=== PATIENT | male | born 1950 | race Caucasian/White ===

== ENCOUNTER 2018-07-01 20:30 | Outpatient (CLI) | payer MEDICARE | END 2018-07-01 20:31 | disposition home or self-care (01) | LOC: SLEEPLAB 20:30 | PROVIDERS: ATTEND Family Medicine | DX: G47.33 Obstructive sleep apnea (adult) (pediatric) (principal); I10 Essential (primary) hypertension; E11.9 Type 2 diabetes mellitus without complications; Z68.39 Body mass index [BMI] 39.0-39.9, adult | CPT/HCPCS: 95810 ==

== ENCOUNTER 2018-07-03 20:30 | Outpatient (CLI) | payer MEDICARE | END 2018-07-03 20:31 | disposition home or self-care (01) | LOC: SLEEPLAB 20:30 | PROVIDERS: ATTEND Family Medicine | DX: G47.33 Obstructive sleep apnea (adult) (pediatric) (principal) | CPT/HCPCS: 95811 ==

== ENCOUNTER 2018-09-01 08:04 | Outpatient (CLI) | payer MEDICARE ==
--- NOTE | 2018-09-01 10:06 | ULT ---
BILATERAL RENAL ULTRASOUND WITH GRAYSCALE AND DOPPLER COLOR FLOW IMAGING: Clinical history: Urinary tract infection. 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 The right kidney reveals no evidence of hydronephrosis. Two small cortical cysts are demonstrated whi ch are benign appearing measuring slightly greater than 1 cm. Urinary bladder is empty and completely distended limiting assessment. Ureteral jet is documented with doppler color flow. IMPRESSION: 1. Absence of left kidney. 2. Small right renal cortical cysts. POS: [facility]
== END 2018-09-01 08:05 | disposition home or self-care (01) ==
LOC: SCSULT 08:04
PROVIDERS: ATTEND Urology
DX: Z12.5 Encounter for screening for malignant neoplasm of prostate (principal); N39.0 Urinary tract infection, site not specified; N28.1 Cyst of kidney, acquired; Z90.5 Acquired absence of kidney
CPT/HCPCS: 36415; 76770; 76775; G0103

== ENCOUNTER 2018-11-26 14:54 | Outpatient (CLI) | payer MEDICARE ==
--- NOTE | 2018-11-26 16:47 | CT ---
CT PULMONARY LUNG SCAN WITHOUT CONTRAST: HISTORY: Low dose screening. The patient is a 35-year smoker. FINDINGS: There is a calcified granuloma within the right lower lobe. No other pulmonary nodules are identifie d. No pleural effusions or infiltrative process. The mediastinal structures are unremarkable, other than moderate coronary artery calcification. The visualized liver parenchyma shows no focal findings. IMPRESSION: Lung-RADS category 1S-Negative. The S designation is for moderate coronary artery calcification. POS: [facility]
== END 2018-11-26 14:55 | disposition home or self-care (01) ==
LOC: CT 14:54
PROVIDERS: ATTEND Family Medicine
DX: F17.210 Nicotine dependence, cigarettes, uncomplicated (principal)
CPT/HCPCS: G0297

== ENCOUNTER 2020-12-28 11:14 | Outpatient (CLI) | payer OTHER | END 2020-12-28 11:15 | disposition home or self-care (01) | LOC: BICCT 11:14 | PROVIDERS: ATTEND Family Medicine | DX: E78.2 Mixed hyperlipidemia (principal); I70.90 Unspecified atherosclerosis | CPT/HCPCS: 75571 ==

== ENCOUNTER 2021-07-05 13:00 | Inpatient (IN) | payer MEDICARE ==
[2021-07-11 15:30] LABS: Hemoglobin 15.8 g/dL (13.5-17.5); Mean Corpuscular HGB CONC 34.8 g/dL (32.0-36.0); Mean Corpuscular Hemoglobin 32.1 pg (27.0-33.0); Mean Corpuscular Volume 92.3 fl (81.2-95.1); Mean Platelet Volume 10.8 fl (7.4-10.4); Platelet Count 227 10x3/uL (150-450); RBC Distribution Width 12.6 % (11.5-14.5); Red Blood Cell (RBC) Count 4.92 10x6/uL (4.32-5.72); White Blood Cell (WBC) Count 8.9 10x3/uL (3.5-10.5)
[2021-07-11 15:53] LABS: Anion Gap 16 mmol/L (10-20); BUN (Urea Nitrogen) 11 mg/dL (8.4-25.7); Calc. Creatinine Clearance 0 mL/min (70-130); Calcium 10.8 mg/dL (7.8-10.44); Carbon Dioxide 23 mmol/L (23-31); Chloride 101 mmol/L (98-107); Glucose 219 mg/dL (80-115); Potassium 4.2 mmol/L (3.5-5.1); Sodium 136 mmol/L (136-145)
[2021-07-12 00:49] LABS: SARS-CoV-2 PCR by NAA Not Detected (NotDetected)
[2021-07-13 11:43] VITALS: BMI 38.0
[2021-07-14] MEDS ORDERED: Fentanyl 250 MCG/5 ML VIAL ONE (07:17)
[2021-07-14] MEDS ORDERED: Midazolam HCl 5 mg/5 ml Vial ONE (07:17)
[2021-07-14] MEDS ORDERED: Dexmedetomidine 200 MCG/2 ML VIAL ONE (07:17)
[2021-07-14] MEDS ORDERED: ceFAZolin 2 GM/DEX 5% 100 ML BAG ONE (07:57)
[2021-07-14] MEDS ORDERED: Bupivacaine PF 0.5% 30 ML VIAL ONE (08:48)
[2021-07-14] MEDS ORDERED: Albumin 5% 500 ML ONE (08:48)
[2021-07-14] MEDS ORDERED: Dexamethasone 4 mg/ml Vial ONE (08:48)
[2021-07-14] MEDS ORDERED: EPINEPHrine 1 MG/ML AMP ONE (08:48)
[2021-07-14] MEDS ORDERED: Ondansetron ODT 4 MG TAB ONE (08:59)
[2021-07-14] MEDS ORDERED: Midazolam HCl 2 mg/2 ml Vial ONE (08:59)
[2021-07-14] MEDS ORDERED: Heparin 10,000 UNITS/1 ML VIAL 30,000 UNITS in Sodium Chloride 0.9% 1,000 ML FS SCH (10:00)
[2021-07-14] MEDS ORDERED: Insulin Regular 300 UNITS/3 ML VIAL ONE (10:44)
[2021-07-14] MEDS ORDERED: Calcium Chloride 1 GM/10 ML Abboject SYRINGE ONE (11:26)
[2021-07-14] MEDS ORDERED: Magnesium Sulfate 1 GM/2 ML VIAL ONE (11:26)
[2021-07-14] MEDS ORDERED: Potassium Chloride 60 MEQ/30 ML VIAL ONE (11:26)
[2021-07-14] MEDS ORDERED: Lidocaine 1% PF 5 ML VIAL ONE (11:26)
[2021-07-14] MEDS ORDERED: Succinylcholine 200 MG/10 ml SYRINGE FS ONE (11:26)
[2021-07-14] MEDS ORDERED: Heparin 5,000 UNITS/ML VIAL ONE (11:26)
[2021-07-14] MEDS ORDERED: Sodium Bicarb 50 MEQ/50 ML Abboject 8.4% SYRINGE ONE (11:26)
[2021-07-14] MEDS ORDERED: Thrombin 5000 UNITS/5 ML VIAL ONE (11:26)
[2021-07-14] MEDS ORDERED: Norepinephrine 4 MG/4 ML VIAL ONE (11:26)
[2021-07-14] MEDS ORDERED: PROPOFOL 200 MG/20 ML VIAL ONE (11:26)
[2021-07-14] MEDS ORDERED: Aminocaproic Acid 5 GM/20 ML VIAL ONE (11:26)
[2021-07-14] MEDS ORDERED: Nitroglycerin 50 MG/250 ML BOT ONE (11:26)
[2021-07-14] MEDS ORDERED: Lidocaine 2% PF 100 mg/5 ml Syringe ONE (11:26)
[2021-07-14] MEDS ORDERED: Protamine Sulfate 250 MG/25 ML VIAL ONE (11:26)
[2021-07-14] MEDS ORDERED: Mannitol 12.5 GM/50 ML ONE (11:26)
[2021-07-14] MEDS ORDERED: Papaverine 60 MG/2 ML VIAL ONE (11:26)
[2021-07-14] MEDS ORDERED: Glycopyrrolate 0.2 MG/ML 5 ML SYRINGE ONE (11:26)
[2021-07-14] MEDS ORDERED: Heparin 30,000 units/30 ml VIAL ONE (11:26)
[2021-07-14] MEDS ORDERED: PHENYLEPHRINE-NS 100 MCG/ML 10 ML SYRINGE ONE ×3 (11:26→13:05)
[2021-07-14] MEDS ORDERED: Cardioplegic Soln 1,000 ML BAG ONE (11:26)
[2021-07-14] MEDS ORDERED: Vecuronium 10 MG VIAL ONE (11:26)
[2021-07-14] MEDS ORDERED: traMADol HCl 50 MG TAB PO PRN ×2 (14:16)
[2021-07-14] MEDS ORDERED: hydrALAZINE 20 MG/ML VIAL SLOW IVP PRN (14:16)
[2021-07-14] MEDS ORDERED: Bisacodyl 10 MG SUPP PR PRN (14:16)
[2021-07-14] MEDS ORDERED: Guaifenesin DM 100-10/5 ML UDCUP PO PRN (14:16)
[2021-07-14] MEDS ORDERED: Acetaminophen 325 MG TAB PO PRN (14:16)
[2021-07-14] MEDS ORDERED: D5 1/2 NS w/20 mEq KCL 1,000 ML IV SCH (14:16)
[2021-07-14] MEDS ORDERED: Ondansetron PF 4 MG/2 ML Vial IVP PRN (14:16)
[2021-07-14] MEDS ORDERED: Morphine 2 MG/ML VIAL SLOW IVP PRN (14:16)
[2021-07-14] MEDS ORDERED: Norepinephrine 8 MG/0.9% NS 250 ML IVPB PRN (14:16)
[2021-07-14] MEDS ORDERED: Magnesium 2 GM/50 ML 2 GM in Premix Bag 1 BAG IVPB SCH (14:16)
[2021-07-14] MEDS ORDERED: Nitroglycerin 50 MG/250 ML BOT 250 ML IVPB PRN (14:16)
[2021-07-14] MEDS ORDERED: Bisacodyl 5 MG TAB PO PRN (14:16)
[2021-07-14] MEDS ORDERED: Fentanyl 100 MCG/2 ML VIAL SLOW IVP PRN (14:16)
[2021-07-14] MEDS ORDERED: Post-Op Insulin Drip Protocol IVPB ONE (14:16)
[2021-07-14] MEDS ORDERED: Hetastarch 6% 500 ML 500 ML IVPB PRN (14:16)
[2021-07-14] MEDS ORDERED: Potassium Chloride 20 MEQ/100 ML PREMIX BAG IVPB PRN (14:16)
[2021-07-14] MEDS ORDERED: Mag-Al 1200 mg/1200 mg/30 ML UDCUP PO PRN (14:16)
[2021-07-14] MEDS ORDERED: Lantus 1000 UNITS/10 ML VIAL SC PRN (14:45)
[2021-07-14] MEDS ORDERED: Dextrose 50% Abboject 50 ML SYRINGE SLOW IVP PRN (14:45)
[2021-07-14] MEDS ORDERED: Insulin Regular 300 UNITS/3 ML VIAL SC PRN (14:45)
[2021-07-14] MEDS ORDERED: Dextrose 5% in Water 1,000 ML IV PRN (14:45)
[2021-07-14] MEDS ORDERED: Potassium Chloride 20 MEQ in Premix Bag 1 BAG IVPB PRN (14:45)
[2021-07-14] MEDS: Fentanyl 100 MCG/2 ML VIAL SLOW IVP PRN ×2 (14:55→21:04)
[2021-07-14 14:56] LABS: #Eosinphils 0.2 thou/uL (0.0-0.7); #Lymphocytes 2.3 thou/uL (1.20-3.40); #Monocytes 0.6 thou/uL (0.11-0.59); #Neutrophils 10.7 thou/uL (1.40-6.50); %Basophils 0.3 % (0.0-1.0); %Eosinophils 1.6 % (0.0-10.0); %Lymphocytes 16.6 % (21.0-51.0); %Monocytes 4.3 % (0.0-10.0); %Neutrophils 77.3 % (42.0-75.0); Hemoglobin 13.2 g/dL (14.0-18.0); Mean Corpuscular HGB CONC 35.7 g/dL (32.0-36.0); Mean Corpuscular Hemoglobin 34.1 pg (27.0-31.0); Mean Corpuscular Volume 95.6 fL (78.0-98.0); Mean Platelet Volume 7.8 fL (7.4-10.4); Platelet Count 158 thou/uL (130-400); RBC Distribution Width 11.8 % (11.5-14.5); Red Blood Cell (RBC) Count 3.87 mill/uL (4.70-6.10); White Blood Cell (WBC) Count 13.8 thou/uL (4.8-10.8)
[2021-07-14] MEDS: HUMULIN R 100 UNITS in Sodium Chloride 0.9% 100 ML IVPB SCH (14:56)
[2021-07-14 15:06] LABS: INR-International Normal Ratio 1.3; Prothrombin Time 16.1 sec (12.0-14.7)
[2021-07-14 15:07] LABS: PTT 38.1 sec (22.9-36.1)
[2021-07-14 15:14] LABS: Anion Gap 14 mmol/L (10-20); BUN (Urea Nitrogen) 15 mg/dL (8.4-25.7); Calc. Creatinine Clearance 125 mL/min (70-130); Calcium 8.4 mg/dL (7.8-10.44); Carbon Dioxide 22 mmol/L (23-31); Chloride 111 mmol/L (98-107); Glucose 179 mg/dL (80-115); Potassium 4.2 mmol/L (3.5-5.1); Sodium 143 mmol/L (136-145)
[2021-07-14 15:14] LABS: Actual Bicarbonate (HCO3a) 20.1 mEq/L (22-28); Base Excess (BEa) -6.3 mEq/L (-2.0 to +3.0); CO2 Tension 42.9 mmHg (35.0-45.0); Calcium, Ionized (arterial) 1.14 mmol/L (1.12-1.30); Carboxyhemoglobin (COHb) 0.6 gm% (0.0-3.0); O2 Tension (PaO2), arterial 99.9 mmHg (> 70.0); Potassium - ABG Lab 4.17 mmol/L (3.70-5.30); pH, Arterial 7.29 (7.35-7.45)
[2021-07-14 15:23] LABS: ALV-art Gradient 202.975 mmHg (0-20); Puncture Site Arterial Line
[2021-07-14] MEDS: ceFAZolin Sodium/D5W 2 GM in Premix Bag 1 BAG IVPB SCH ×2 (15:53→23:51)
[2021-07-14] MEDS ORDERED: FLU VACC QS2021-22(65YR UP)/PF 240 MCG/0.7 ML SYRINGE IM ONE (17:00)
[2021-07-14] MEDS: Ketorolac Tromethamine 30 MG/ML VIAL IVP SCH ×2 (17:03→23:51)
[2021-07-14 19:59] LABS: Hemoglobin 12.7 g/dL (14.0-18.0)
[2021-07-14] MEDS: Famotidine/PF 20 mg/2ml Vial SLOW IVP SCH (20:01)
[2021-07-14 20:11] LABS: Potassium 4.2 mmol/L (3.5-5.1)
[2021-07-14] MEDS ORDERED: Simvastatin 40 MG TAB PO SCH (21:00)
[2021-07-14] MEDS: metroNIDAZOLE 500 MG in Premix Bag 1 BAG IVPB SCH (21:04)
[2021-07-14] MEDS: Pregabalin 75 MG CAP PO SCH (21:26)
[2021-07-15] MEDS: HUMULIN R 100 UNITS in Sodium Chloride 0.9% 100 ML IVPB SCH (02:10)
[2021-07-15] MEDS: metroNIDAZOLE 500 MG in Premix Bag 1 BAG IVPB SCH (05:03)
[2021-07-15] MEDS: Ketorolac Tromethamine 30 MG/ML VIAL IVP SCH ×3 (05:03→17:43)
[2021-07-15 05:18] LABS: #Lymphocytes 0.8 thou/uL (1.20-3.40); #Monocytes 0.5 thou/uL (0.11-0.59); #Neutrophils 9.5 thou/uL (1.40-6.50); %Basophils 0.1 % (0.0-1.0); %Eosinophils 0.1 % (0.0-10.0); %Lymphocytes 7.7 % (21.0-51.0); %Monocytes 4.6 % (0.0-10.0); %Neutrophils 87.6 % (42.0-75.0); Mean Corpuscular HGB CONC 35.4 g/dL (32.0-36.0); Mean Corpuscular Hemoglobin 34.1 pg (27.0-31.0); Mean Corpuscular Volume 96.5 fL (78.0-98.0); Mean Platelet Volume 7.9 fL (7.4-10.4); Platelet Count 137 thou/uL (130-400); Red Blood Cell (RBC) Count 3.53 mill/uL (4.70-6.10); White Blood Cell (WBC) Count 10.8 thou/uL (4.8-10.8)
[2021-07-15 05:31] LABS: Anion Gap 10 mmol/L (10-20); BUN (Urea Nitrogen) 13 mg/dL (8.4-25.7); Calc. Creatinine Clearance 116 mL/min (70-130); Calcium 8.6 mg/dL (7.8-10.44); Carbon Dioxide 24 mmol/L (23-31); Chloride 108 mmol/L (98-107); Glucose 129 mg/dL (80-115); Potassium 4.1 mmol/L (3.5-5.1); Sodium 138 mmol/L (136-145)
[2021-07-15] MEDS ORDERED: Lantus 1000 UNITS/10 ML VIAL SC SCH (07:45)
[2021-07-15] MEDS: Aspirin 325 MG TAB PO SCH (08:19)
[2021-07-15] MEDS: Famotidine/PF 20 mg/2ml Vial SLOW IVP SCH (08:19)
[2021-07-15] MEDS: Pregabalin 75 MG CAP PO SCH ×2 (08:19→21:37)
[2021-07-15] MEDS: Cholecalciferol 1,000 UNITS (25 MCG) TAB PO SCH (08:19)
[2021-07-15] MEDS: Tamsulosin HCl 0.4 MG CAP PO SCH (08:20)
[2021-07-15] MEDS: ceFAZolin Sodium/D5W 2 GM in Premix Bag 1 BAG IVPB SCH (08:29)
[2021-07-15] MEDS ORDERED: Magnesium 2 GM/50 ML 2 GM in Premix Bag 1 BAG IVPB SCH (09:00)
[2021-07-15] MEDS: OXcarbazepine 300 MG TAB PO SCH ×2 (10:18→21:37)
[2021-07-15] MEDS ORDERED: Mineral Oil ENEMA PR PRN (11:08)
[2021-07-15] MEDS ORDERED: Nitroglycerin 0.4 MG TAB (25 Tab Bottle) SL PRN (11:08)
[2021-07-15] MEDS ORDERED: Zolpidem Tartrate 5 MG TAB PO PRN (11:08)
[2021-07-15] MEDS ORDERED: diphenhydrAMINE 25 MG CAP PO PRN (11:08)
[2021-07-15] MEDS ORDERED: Dextrose 50% Abboject 50 ML SYRINGE SLOW IVP PRN (11:15)
[2021-07-15] MEDS ORDERED: Dextrose 5% in Water 1,000 ML IV PRN (11:15)
[2021-07-15] MEDS: Insulin Regular 300 UNITS/3 ML VIAL SC PRN ×3 (11:47→22:22)
[2021-07-15 17:47] LABS: Glucose 240 mg/dL (80-115)
[2021-07-15] MEDS: Simvastatin 20 MG TAB PO SCH (21:37)
[2021-07-16] MEDS: Ketorolac Tromethamine 30 MG/ML VIAL IVP SCH ×5 (00:20→18:31)
[2021-07-16] MEDS: Insulin Regular 300 UNITS/3 ML VIAL SC PRN ×4 (05:58→21:12)
[2021-07-16] MEDS: Polyethylene Glycol 3350 17 GM Packet PO SCH (08:59)
[2021-07-16] MEDS: Cholecalciferol 1,000 UNITS (25 MCG) TAB PO SCH (09:00)
[2021-07-16] MEDS: OXcarbazepine 300 MG TAB PO SCH ×2 (09:01→21:13)
[2021-07-16] MEDS: Pregabalin 75 MG CAP PO SCH ×2 (09:01→21:13)
[2021-07-16] MEDS: Potassium Chloride 10 MEQ TAB PO SCH (09:01)
[2021-07-16] MEDS: Furosemide 40 MG TAB PO SCH (09:01)
[2021-07-16] MEDS: glipiZIDE 10 MG TAB PO SCH (09:02)
[2021-07-16] MEDS: Tamsulosin HCl 0.4 MG CAP PO SCH (09:02)
[2021-07-16] MEDS: Aspirin 325 MG TAB PO SCH (09:02)
[2021-07-16] MEDS: Alogliptin 6.25 MG TAB PO SCH (09:11)
[2021-07-16] MEDS: Simvastatin 20 MG TAB PO SCH (21:13)
[2021-07-17] MEDS: Ketorolac Tromethamine 30 MG/ML VIAL IVP SCH ×4 (01:02→19:02)
[2021-07-17] MEDS: Insulin Regular 300 UNITS/3 ML VIAL SC PRN ×2 (05:33→11:14)
[2021-07-17] MEDS: Tamsulosin HCl 0.4 MG CAP PO SCH (08:31)
[2021-07-17] MEDS: Cholecalciferol 1,000 UNITS (25 MCG) TAB PO SCH (08:31)
[2021-07-17] MEDS: Pregabalin 75 MG CAP PO SCH (08:31)
[2021-07-17] MEDS: Aspirin 325 MG TAB PO SCH (08:31)
[2021-07-17] MEDS: Furosemide 40 MG TAB PO SCH (08:31)
[2021-07-17] MEDS: glipiZIDE 10 MG TAB PO SCH (08:31)
[2021-07-17] MEDS: Polyethylene Glycol 3350 17 GM Packet PO SCH (08:32)
[2021-07-17] MEDS: OXcarbazepine 300 MG TAB PO SCH (08:32)
[2021-07-17] MEDS: Potassium Chloride 10 MEQ TAB PO SCH (08:32)
[2021-07-17] MEDS: Alogliptin 6.25 MG TAB PO SCH (11:13)
[2021-07-17 15:53] VITALS: BP 143/70; TEMP 98.2
[2021-07-18] MEDS ORDERED: Losartan 25 MG TAB PO SCH (09:00)
== END 2021-07-17 18:30 | disposition home or self-care (01) | DRG 236 ==
LOC: SURG A 07-14 07:39 → EDSTATUS 07-14 13:15 → CCU 07-14 13:27 → 2NO 07-15 12:22
PROVIDERS: ADMIT Thoracic Surgery (Cardiothoracic Vascular Surgery); ATTEND Thoracic Surgery (Cardiothoracic Vascular Surgery)
PROC: 02100Z9 Bypass Coronary Artery, One Artery from Left Internal Mammary, Open Approach (ICD-10-PCS; principal; 2021-07-14)
PROC: 021109W Bypass Coronary Artery, Two Arteries from Aorta with Autologous Venous Tissue, Open Approach (ICD-10-PCS; 2021-07-14)
PROC: 06BQ4ZZ Excision of Left Saphenous Vein, Percutaneous Endoscopic Approach (ICD-10-PCS; 2021-07-14)
PROC: 5A1221Z Performance of Cardiac Output, Continuous (ICD-10-PCS; 2021-07-14)
PROC: 3E0333Z Introduction of Anti-inflammatory into Peripheral Vein, Percutaneous Approach (ICD-10-PCS; 2021-07-14)
PROC: 3E033XZ Introduction of Vasopressor into Peripheral Vein, Percutaneous Approach (ICD-10-PCS; 2021-07-14)
DX: I25.110 Atherosclerotic heart disease of native coronary artery with unstable angina pectoris (principal); Z20.822 Contact with and (suspected) exposure to COVID-19; G47.33 Obstructive sleep apnea (adult) (pediatric); E11.9 Type 2 diabetes mellitus without complications; E78.2 Mixed hyperlipidemia; I10 Essential (primary) hypertension; E66.09 Other obesity due to excess calories; F17.210 Nicotine dependence, cigarettes, uncomplicated; Z96.652 Presence of left artificial knee joint; Z79.01 Long term (current) use of anticoagulants; Z79.84 Long term (current) use of oral hypoglycemic drugs; Z79.82 Long term (current) use of aspirin; Z79.899 Other long term (current) drug therapy; Z85.828 Personal history of other malignant neoplasm of skin; Z68.38 Body mass index [BMI] 38.0-38.9, adult; Z82.49 Family history of ischemic heart disease and other diseases of the circulatory system; Z88.8 Allergy status to other drugs, medicaments and biological substances
CPT/HCPCS: 36415; 36416; 36430; 71045; 71046; 80048; 82805; 85025; 85027; 85610; 85730; 86850; 86900; 86901; 93005; 93010; 93798; 94002; 94150; J0171; J1100; J1642; J1644; J1815; J1885; J2001; J2150; J2250; J2440; J2704; J2720; J3010; J3370; J3475; J3480; J3490; P9045; Q0162; S0017; S0020; S0028; U0003; U0005

== ENCOUNTER 2021-07-11 13:14 | Outpatient (CLI) | payer MEDICARE | END 2021-07-11 13:15 | disposition home or self-care (01) | LOC: LABBT 13:14 | PROVIDERS: ATTEND Thoracic Surgery (Cardiothoracic Vascular Surgery) | DX: Z01.818 Encounter for other preprocedural examination (principal); I25.10 Atherosclerotic heart disease of native coronary artery without angina pectoris | CPT/HCPCS: 71046; 80048; 85027; 86850; 86900; 86901; 93005; U0003; U0005; 93010 ==

== ENCOUNTER 2021-07-22 09:18 | Inpatient (IN) | payer MEDICARE ==
[2021-07-22 10:08] LABS: #Eosinphils 0.5 thou/uL (0.0-0.7); #Lymphocytes 1.5 thou/uL (1.20-3.40); #Monocytes 0.4 thou/uL (0.11-0.59); #Neutrophils 4.5 thou/uL (1.40-6.50); %Basophils 0.6 % (0.0-1.0); %Eosinophils 6.7 % (0.0-10.0); %Monocytes 6.2 % (0.0-10.0); %Neutrophils 64.4 % (42.0-75.0); Hemoglobin 12.3 g/dL (14.0-18.0); Mean Corpuscular HGB CONC 34.8 g/dL (32.0-36.0); Mean Corpuscular Hemoglobin 33.6 pg (27.0-31.0); Mean Corpuscular Volume 96.4 fL (78.0-98.0); Mean Platelet Volume 7.1 fL (7.4-10.4); Platelet Count 279 thou/uL (130-400); RBC Distribution Width 11.8 % (11.5-14.5); Red Blood Cell (RBC) Count 3.66 mill/uL (4.70-6.10)
[2021-07-22 10:31] LABS: ALT (SGPT) 16 U/L (8-55); AST (SGOT) 13 U/L (5-34); Albumin 3.7 g/dL (3.4-4.8); Alkaline Phosphatase 74 U/L (40-110); Anion Gap 14 mmol/L (10-20); BUN (Urea Nitrogen) 11 mg/dL (8.4-25.7); Bilirubin, Total 0.8 mg/dL (0.2-1.2); Calc. Creatinine Clearance 0 mL/min (70-130); Calcium 9.4 mg/dL (7.8-10.44); Carbon Dioxide 22 mmol/L (23-31); Chloride 104 mmol/L (98-107); Glucose 248 mg/dL (80-115); Potassium 4.1 mmol/L (3.5-5.1); Protein, Total 6.7 g/dL (5.8-8.1); Sodium 136 mmol/L (136-145)
[2021-07-22 10:53] LABS: CKMB 0.9 ng/mL (0-6.6)
[2021-07-22] MEDS ORDERED: Aspirin 325 MG TAB ONE (12:36)
[2021-07-22] MEDS ORDERED: Ondansetron ODT 4 MG TAB PO PRN (13:10)
[2021-07-22] MEDS ORDERED: traMADol HCl 50 MG TAB PO PRN (13:12)
[2021-07-22] MEDS ORDERED: HumaLOG 300 UNITS/3 ML VIAL SC PRN (13:16)
[2021-07-22] MEDS ORDERED: Dextrose 50% Abboject 50 ML SYRINGE SLOW IVP PRN (13:16)
[2021-07-22] MEDS ORDERED: Dextrose 5% in Water 1,000 ML IV PRN (13:16)
[2021-07-22] MEDS ORDERED: Metoprolol Tartrate 25 MG TAB PO SCH ×2 (13:30→21:00)
[2021-07-22 13:33] LABS: Magnesium 1.8 mg/dL (1.6-2.6); Phosphorus 2.5 mg/dL (2.3-4.7)
[2021-07-22 13:55] LABS: Troponin I 0.063 ng/mL (< 0.028)
[2021-07-22 16:40] VITALS: BMI 37.7
[2021-07-22] MEDS: HumaLOG 300 UNITS/3 ML VIAL SC PRN (17:48)
[2021-07-22] MEDS: DULoxetine 60 MG CAP PO SCH (20:32)
[2021-07-22] MEDS: Simvastatin 20 MG TAB PO SCH (20:32)
[2021-07-22] MEDS: OXcarbazepine 300 MG TAB PO SCH (20:32)
[2021-07-22] MEDS: Metoprolol Tartrate 25 MG TAB PO SCH (20:32)
[2021-07-22] MEDS ORDERED: Simvastatin 40 MG TAB PO SCH (21:00)
[2021-07-22 23:43] LABS: SARS-CoV-2 PCR by NAA Not Detected (NotDetected)
[2021-07-23] MEDS: HumaLOG 300 UNITS/3 ML VIAL SC PRN (05:52)
[2021-07-23 05:56] LABS: #Eosinphils 0.5 thou/uL (0.0-0.7); #Monocytes 0.5 thou/uL (0.11-0.59); #Neutrophils 4.7 thou/uL (1.40-6.50); %Basophils 0.5 % (0.0-1.0); %Lymphocytes 25.5 % (21.0-51.0); %Monocytes 6.3 % (0.0-10.0); %Neutrophils 61.7 % (42.0-75.0); Hemoglobin 11.8 g/dL (14.0-18.0); Mean Corpuscular HGB CONC 35.5 g/dL (32.0-36.0); Mean Corpuscular Hemoglobin 33.7 pg (27.0-31.0); Mean Platelet Volume 7.1 fL (7.4-10.4); Platelet Count 298 thou/uL (130-400); RBC Distribution Width 11.9 % (11.5-14.5); Red Blood Cell (RBC) Count 3.51 mill/uL (4.70-6.10); White Blood Cell (WBC) Count 7.6 thou/uL (4.8-10.8)
[2021-07-23 06:10] LABS: Anion Gap 13 mmol/L (10-20); BUN (Urea Nitrogen) 10 mg/dL (8.4-25.7); Calc. Creatinine Clearance 124 mL/min (70-130); Calcium 9.3 mg/dL (7.8-10.44); Carbon Dioxide 22 mmol/L (23-31); Chloride 106 mmol/L (98-107); Glucose 228 mg/dL (80-115); Potassium 4.2 mmol/L (3.5-5.1); Sodium 137 mmol/L (136-145)
[2021-07-23] MEDS ORDERED: Electrolyte Replacement Protocol 1 EACH FS SCH (07:00)
[2021-07-23 07:35] LABS: Magnesium 1.7 mg/dL (1.6-2.6)
[2021-07-23] MEDS ORDERED: Magnesium Sulfate 3 GM in Sodium Chloride 0.9% 100 ML IVPB SCH (09:00)
[2021-07-23] MEDS ORDERED: Clopidogrel Bisulfate 75 MG TAB PO SCH (09:00)
[2021-07-23] MEDS ORDERED: Magnesium Sulfate 3 GM in Sodium Chloride 0.9% 250 ML 250 ML IVPB SCH (09:30)
[2021-07-23] MEDS: DULoxetine 60 MG CAP PO SCH ×2 (09:47→21:11)
[2021-07-23] MEDS: Aspirin 81 mg Enteric Coated Tablet PO SCH (09:47)
[2021-07-23] MEDS: Metoprolol Tartrate 25 MG TAB PO SCH ×2 (09:47→21:11)
[2021-07-23] MEDS: Tamsulosin HCl 0.4 MG CAP PO SCH (09:47)
[2021-07-23] MEDS: OXcarbazepine 300 MG TAB PO SCH ×2 (09:48→21:11)
[2021-07-23] MEDS: Aripiprazole 10 MG TAB PO SCH (10:44)
[2021-07-23] MEDS ORDERED: Metoprolol Tartrate 25 MG TAB PO SCH (11:11)
[2021-07-23] MEDS: Simvastatin 20 MG TAB PO SCH (21:12)
[2021-07-24] MEDS: HumaLOG 300 UNITS/3 ML VIAL SC PRN ×2 (06:44→14:06)
[2021-07-24] MEDS ORDERED: glipiZIDE 10 MG TAB PO SCH (07:30)
[2021-07-24] MEDS: Aspirin 81 mg Enteric Coated Tablet PO SCH (08:33)
[2021-07-24] MEDS: DULoxetine 60 MG CAP PO SCH (08:33)
[2021-07-24] MEDS: OXcarbazepine 300 MG TAB PO SCH (08:33)
[2021-07-24] MEDS: Aripiprazole 10 MG TAB PO SCH (08:34)
[2021-07-24] MEDS: Metoprolol Tartrate 25 MG TAB PO SCH (08:34)
[2021-07-24] MEDS: Tamsulosin HCl 0.4 MG CAP PO SCH (08:34)
[2021-07-24] MEDS ORDERED: Alogliptin 6.25 MG TAB PO SCH (09:00)
[2021-07-24 10:39] LABS: Anion Gap 13 mmol/L (10-20); BUN (Urea Nitrogen) 14 mg/dL (8.4-25.7); Calc. Creatinine Clearance 99 mL/min (70-130); Calcium 9.4 mg/dL (7.8-10.44); Carbon Dioxide 24 mmol/L (23-31); Chloride 102 mmol/L (98-107); Glucose 268 mg/dL (80-115); Potassium 4.3 mmol/L (3.5-5.1); Sodium 135 mmol/L (136-145)
[2021-07-24] MEDS ORDERED: Magnesium 2 GM/50 ML 2 GM in Premix Bag 1 BAG IVPB SCH (14:00)
[2021-07-24 18:20] VITALS: BP 128/74; TEMP 98
== END 2021-07-24 19:30 | disposition home or self-care (01) | DRG 310 ==
LOC: ERS 09:18 → 2NO 12:41
PROVIDERS: ADMIT Family Medicine; ATTEND Internal Medicine
DX: I47.1 Supraventricular tachycardia (principal); I25.10 Atherosclerotic heart disease of native coronary artery without angina pectoris; E78.5 Hyperlipidemia, unspecified; F41.9 Anxiety disorder, unspecified; F32.A Depression, unspecified; E11.22 Type 2 diabetes mellitus with diabetic chronic kidney disease; I12.9 Hypertensive chronic kidney disease with stage 1 through stage 4 chronic kidney disease, or unspecified chronic kidney disease; N40.0 Benign prostatic hyperplasia without lower urinary tract symptoms; F17.210 Nicotine dependence, cigarettes, uncomplicated; N18.2 Chronic kidney disease, stage 2 (mild); E83.42 Hypomagnesemia; D53.9 Nutritional anemia, unspecified; E66.9 Obesity, unspecified; Z88.8 Allergy status to other drugs, medicaments and biological substances; Z85.828 Personal history of other malignant neoplasm of skin; Z95.1 Presence of aortocoronary bypass graft; Z79.82 Long term (current) use of aspirin; Z79.899 Other long term (current) drug therapy; Z68.37 Body mass index [BMI] 37.0-37.9, adult
CPT/HCPCS: 36415; 36416; 71045; 80048; 80053; 82553; 83735; 83880; 84100; 84443; 84484; 85025; 93005; 94760; J1815; J3475; J7050; U0003; U0005

== ENCOUNTER 2021-11-15 12:11 | Emergency (ER) | payer MEDICARE, OTHER ==
[2021-11-15 13:37] LABS: #Eosinphils 0.2 thou/uL (0.0-0.7); #Monocytes 0.4 thou/uL (0.11-0.59); #Neutrophils 4.2 thou/uL (1.40-6.50); %Basophils 0.6 % (0.0-1.0); %Eosinophils 2.8 % (0.0-10.0); %Lymphocytes 28.9 % (21.0-51.0); %Monocytes 6.4 % (0.0-10.0); %Neutrophils 61.4 % (42.0-75.0); Hemoglobin 16.1 g/dL (14.0-18.0); Mean Corpuscular HGB CONC 34.1 g/dL (32.0-36.0); Mean Corpuscular Hemoglobin 32.4 pg (27.0-31.0); Mean Platelet Volume 7.5 fL (7.4-10.4); Platelet Count 189 thou/uL (130-400); RBC Distribution Width 12.4 % (11.5-14.5); Red Blood Cell (RBC) Count 4.98 mill/uL (4.70-6.10); White Blood Cell (WBC) Count 6.9 thou/uL (4.8-10.8)
[2021-11-15 14:00] LABS: ALT (SGPT) 14 U/L (8-55); AST (SGOT) 12 U/L (5-34); Albumin 4.3 g/dL (3.4-4.8); Alkaline Phosphatase 66 U/L (40-110); Anion Gap 15 mmol/L (10-20); BUN (Urea Nitrogen) 12 mg/dL (8.4-25.7); Bilirubin, Total 0.6 mg/dL (0.2-1.2); Calc. Creatinine Clearance 0 mL/min (70-130); Calcium 10.2 mg/dL (7.8-10.44); Carbon Dioxide 22 mmol/L (23-31); Chloride 106 mmol/L (98-107); Globulin 3.4 g/dL (2.4-3.5); Glucose 105 mg/dL (80-115); Potassium 4.3 mmol/L (3.5-5.1); Protein, Total 7.7 g/dL (5.8-8.1); Sodium 139 mmol/L (136-145)
== END 2021-11-15 16:00 | disposition short-term general hospital (02) ==
LOC: ERS 12:11
DX: I25.10 Atherosclerotic heart disease of native coronary artery without angina pectoris (principal); Z85.820 Personal history of malignant melanoma of skin; G47.30 Sleep apnea, unspecified; E11.9 Type 2 diabetes mellitus without complications; E78.5 Hyperlipidemia, unspecified; F17.210 Nicotine dependence, cigarettes, uncomplicated
CPT/HCPCS: 71045; 80053; 84484; 85025; 93005; 93798; 94760

== ENCOUNTER 2022-02-05 12:11 | Outpatient (CLI) | payer MEDICARE | END 2022-02-05 12:12 | disposition home or self-care (01) | LOC: SCSMRI 12:11 | PROVIDERS: ATTEND Orthopaedic Surgery | DX: M48.062 Spinal stenosis, lumbar region with neurogenic claudication (principal); M47.816 Spondylosis without myelopathy or radiculopathy, lumbar region | CPT/HCPCS: 72148 ==

== ENCOUNTER 2022-07-16 12:22 | Outpatient (CLI) | payer MEDICARE ==
[2022-07-16] MEDS ORDERED: Magnevist 469MG/ML 20 ML VIAL ONE (15:02)
== END 2022-07-16 12:23 | disposition home or self-care (01) ==
LOC: MRI 12:22
PROVIDERS: ATTEND Psychiatry & Neurology Neurology
DX: G50.0 Trigeminal neuralgia (principal); R90.82 White matter disease, unspecified
CPT/HCPCS: 70553; A9579

== ENCOUNTER 2022-10-04 09:51 | Outpatient (CLI) | payer MEDICARE ==
[2022-10-04] MEDS ORDERED: Iopamidol-370 76% 500 ML 1 ML ONE (14:13)
== END 2022-10-04 09:52 | disposition home or self-care (01) ==
LOC: BICCT 09:51
PROVIDERS: ATTEND Physician Assistant Medical
DX: K52.9 Noninfective gastroenteritis and colitis, unspecified (principal)
CPT/HCPCS: 74177; Q9967

== ENCOUNTER 2023-01-13 12:15 | Emergency (ER) | payer OTHER, MEDICARE ==
[2023-01-13] MEDS ORDERED: Boostrix 0.5 ML (Tdap) VIAL (>/=7 yrs of age) ONE (13:19)
== END 2023-01-13 13:53 | disposition home or self-care (01) ==
LOC: ERS 12:15
DX: S61.451A Open bite of right hand, initial encounter (principal); I25.10 Atherosclerotic heart disease of native coronary artery without angina pectoris; E11.9 Type 2 diabetes mellitus without complications; E78.5 Hyperlipidemia, unspecified; I10 Essential (primary) hypertension; F17.210 Nicotine dependence, cigarettes, uncomplicated; Y92.009 Unspecified place in unspecified non-institutional (private) residence as the place of occurrence of the external cause; W54.0XXA Bitten by dog, initial encounter
CPT/HCPCS: 90471; 90715

== ENCOUNTER 2023-01-17 09:56 | Outpatient (CLI) | payer MEDICARE ==
[2023-01-17 11:20] LABS: Hemoglobin 14.8 g/dL (13.5-17.5); Mean Corpuscular HGB CONC 34.7 g/dL (32.0-36.0); Mean Corpuscular Hemoglobin 31.8 pg (27.0-33.0); Mean Corpuscular Volume 91.8 fl (81.2-95.1); Platelet Count 229 10x3/uL (130-400); RBC Distribution Width 12.4 % (11.5-14.5); Red Blood Cell (RBC) Count 4.65 10x6/uL (4.32-5.72)
[2023-01-17 11:21] LABS: %Basophils 1.2 % (0.0-2.0); %Eosinophils 4.7 % (0.0-6.0); %Lymphocytes 27.8 % (18.0-47.0); %Monocytes 6.7 % (0.0-10.0); %Neutrophils 59.3 % (40.0-75.0); Manual Diff?? NO
[2023-01-17 11:22] LABS: #Basophils 0.1 10x3/uL (0.0-0.2); #Eosinphils 0.3 10x3/uL (0.0-0.5); #Monocytes 0.4 10x3/uL (0.0-1.1); #Neutrophils 3.6 10x3/uL (1.5-8.4)
[2023-01-17 11:52] LABS: Anion Gap 16 mmol/L (10-20); BUN (Urea Nitrogen) 9 mg/dL (8.4-25.7); Calc. Creatinine Clearance 0 mL/min (70-130); Calcium 9.6 mg/dL (7.8-10.44); Carbon Dioxide 21 mmol/L (23-31); Chloride 105 mmol/L (98-107); Estimated GFR 91; Glucose 167 mg/dL (83-110); Potassium 4.2 mmol/L (3.5-5.1); Sodium 138 mmol/L (136-145)
== END 2023-01-17 09:57 | disposition home or self-care (01) ==
LOC: LABBT 09:56
PROVIDERS: ATTEND Orthopaedic Surgery Hand Surgery
DX: Z01.818 Encounter for other preprocedural examination (principal); G56.02 Carpal tunnel syndrome, left upper limb; G56.22 Lesion of ulnar nerve, left upper limb
CPT/HCPCS: 80048; 85025; 93005; 93010

== ENCOUNTER 2023-01-21 11:36 | Day surgery (SDC) | payer MEDICARE ==
[2023-01-17 14:47] VITALS: BMI 38.0
[2023-01-21] MEDS ORDERED: Neomycin-Polymyxin 1 ML AMP ONE (12:24)
[2023-01-21] MEDS ORDERED: Bupivacaine PF 0.5% 30 ML VIAL ONE (12:24)
[2023-01-21] MEDS ORDERED: Bacitracin Zinc Ointment 30 gm TUBE ONE (12:24)
[2023-01-21] MEDS ORDERED: Betamet Acet/Betamet Na Ph 30 MG/5 ML VIAL ONE (12:24)
[2023-01-21] MEDS ORDERED: Sodium Chloride 0.9% 100 ML ONE (12:41)
[2023-01-21] MEDS ORDERED: CEFAZOLIN 2 GM VIAL ONE (12:41)
[2023-01-21] MEDS ORDERED: fentaNYL 50 mcg/mL 1 mL Vial ONE (13:36)
[2023-01-21] MEDS ORDERED: Ropivacaine 0.5% HCl/PF (150 MG/30 ML VIAL) ONE (13:36)
[2023-01-21] MEDS ORDERED: Propofol 500 MG/50 ML VIAL ONE ×3 (13:47→15:34)
[2023-01-21] MEDS ORDERED: fentaNYL PF 100 MCG/2 ML SYRINGE ONE (13:50)
[2023-01-21] MEDS ORDERED: Lidocaine 1% PF 5 ML VIAL ONE (14:15)
[2023-01-21] MEDS ORDERED: PROPOFOL 200 MG/20 ML VIAL ONE (14:15)
[2023-01-21] MEDS ORDERED: HYDROmorphone 2 MG/ML VIAL ONE (15:22)
[2023-01-21] MEDS ORDERED: Ketorolac Tromethamine 30 MG/ML VIAL ONE (17:02)
== END 2023-01-21 17:45 | disposition home or self-care (01) ==
LOC: SDC 11:36
PROVIDERS: ATTEND Orthopaedic Surgery Hand Surgery
PROC: 01N40ZZ Release Ulnar Nerve, Open Approach (ICD-10-PCS; principal; 2023-01-21)
PROC: 01N50ZZ Release Median Nerve, Open Approach (ICD-10-PCS; 2023-01-21)
PROC: 01N40ZZ Release Ulnar Nerve, Open Approach (ICD-10-PCS; 2023-01-21)
DX: G56.22 Lesion of ulnar nerve, left upper limb (principal); G56.02 Carpal tunnel syndrome, left upper limb; D17.22 Benign lipomatous neoplasm of skin and subcutaneous tissue of left arm; E11.9 Type 2 diabetes mellitus without complications; E78.00 Pure hypercholesterolemia, unspecified; G47.30 Sleep apnea, unspecified; I10 Essential (primary) hypertension; F17.210 Nicotine dependence, cigarettes, uncomplicated; Z79.82 Long term (current) use of aspirin; Z79.84 Long term (current) use of oral hypoglycemic drugs; Z79.85 Long-term (current) use of injectable non-insulin antidiabetic drugs; Z79.899 Other long term (current) drug therapy; Z88.8 Allergy status to other drugs, medicaments and biological substances
CPT/HCPCS: 64718; 64719; 64721; J3010; 88304; C1776; J0702; J1170; J1885; J2704; J2795; J3490; S0020

== ENCOUNTER 2023-05-29 11:37 | Outpatient (CLI) | payer MEDICARE | END 2023-05-29 11:38 | disposition home or self-care (01) | LOC: ULT 11:37 | PROVIDERS: ATTEND Urology | DX: N40.1 Benign prostatic hyperplasia with lower urinary tract symptoms (principal); Q60.0 Renal agenesis, unilateral; N28.1 Cyst of kidney, acquired; Z87.440 Personal history of urinary (tract) infections | CPT/HCPCS: 76770 ==

== ENCOUNTER 2023-08-16 11:51 | Emergency (ER) | payer MEDICARE ==
[2023-08-16 12:51] LABS: #Basophils 0.1 thou/uL (0.0-0.2); #Eosinphils 0.3 thou/uL (0.0-0.7); #Monocytes 0.6 thou/uL (0.11-0.59); #Neutrophils 4.9 thou/uL (1.40-6.50); %Basophils 0.9 % (0.0-1.0); %Eosinophils 3.3 % (0.0-10.0); %Lymphocytes 27.4 % (21.0-51.0); %Monocytes 7.1 % (0.0-10.0); %Neutrophils 61.2 % (42.0-75.0); Hematocrit 45.7 % (42.0-52.0); Mean Corpuscular Hemoglobin 32.6 pg (27.0-31.0); Mean Corpuscular Volume 93.1 fl (78.0-98.0); Mean Platelet Volume 9.8 fL (7.4-10.4); Platelet Count 203 10x3/uL (130-400); RBC Distribution Width 12.9 % (11.5-14.5); Red Blood Cell (RBC) Count 4.91 mill/uL (4.70-6.10); White Blood Cell (WBC) Count 7.9 10x3/uL (4.8-10.8)
[2023-08-16 13:15] LABS: ALT (SGPT) 28 U/L (8-55); AST (SGOT) 25 U/L (5-34); Albumin 4.6 g/dL (3.4-4.8); Alkaline Phosphatase 70 U/L (40-110); Anion Gap 16 mmol/L (10-20); BUN (Urea Nitrogen) 9 mg/dL (8.4-25.7); Bilirubin, Total 0.6 mg/dL (0.2-1.2); Calc. Creatinine Clearance 0 mL/min (70-130); Calcium 10.4 mg/dL (7.8-10.44); Carbon Dioxide 20 mmol/L (23-31); Chloride 103 mmol/L (98-107); Estimated GFR 91; Globulin 3.5 g/dL (2.4-3.5); Glucose 186 mg/dL (83-110); Lipase 144 U/L (8-78); Protein, Total 8.1 g/dL (5.8-8.1); Sodium 135 mmol/L (136-145)
[2023-08-16 13:20] LABS: Troponin I Less than 0.010 ng/mL (< 0.028)
== END 2023-08-16 14:03 | disposition home or self-care (01) ==
LOC: ERS 11:51
DX: I10 Essential (primary) hypertension (principal); E11.9 Type 2 diabetes mellitus without complications; F17.210 Nicotine dependence, cigarettes, uncomplicated
CPT/HCPCS: 36415; 71045; 80053; 83690; 83880; 84484; 85025; 93005